=== PATIENT | male | born 1945 | race Caucasian/White ===

== ENCOUNTER 2017-01-22 09:39 | Emergency (ER) | payer MEDICARE, BC ==
--- NOTE | 2017-01-23 08:16 | ER ---
ADMIT: 01/22/2017 RM/LOC: ER [facility] MR#: [id number] [id number] LEEANN THORNTON [address] [place] [address] Emergency Room Report SEX: M AGE: 71 : 1945 DATE: 01/22/2017 ADDENDUM: A 71-year-old white male with known coronary artery disease, CABG, stent coming with chest pain. That went away with nitro. I spoke with Dr. Etienne. Since CBC, chemistry, chest x-ray, EKG is all nothing acute, we are going to put him on Imdur 30 daily, and then he will follow up with Dr. Etienne. Return if condition changes. CONDITION ON DISCHARGE: Good. Khai Russ MD/ aashish JOB #: [id number] CC: Khai Russ MD, Attending Physician Tom Garner DO, Family Physician
== END 2017-01-22 12:02 | disposition home or self-care (01) ==
LOC: ER 09:39
DX: I20.9 Angina pectoris, unspecified (principal); I10 Essential (primary) hypertension; I25.10 Atherosclerotic heart disease of native coronary artery without angina pectoris; E11.9 Type 2 diabetes mellitus without complications; Z95.1 Presence of aortocoronary bypass graft; Z79.899 Other long term (current) drug therapy; Z79.82 Long term (current) use of aspirin; E78.5 Hyperlipidemia, unspecified; Z95.5 Presence of coronary angioplasty implant and graft